=== PATIENT | male | born 2000 ===

== ENCOUNTER 2022-07-15 21:14 | Emergency (ER) | payer SELFPAY ==
[~2022-07-15] VITALS: Ht 167.6 cm; Wt 84.0 kg
[2022-07-15 21:55] LABS: AMPHET/METH SCREEN,URINE NEGATIVE (NEGATIVE); BARBITURATE SCREEN, URINE NEGATIVE (NEGATIVE); BENZODIAZEPINES SCREEN,URINE NEGATIVE (NEGATIVE); CANNABINOID SCREEN,URINE NEGATIVE (NEGATIVE); COCAINE SCREEN,URINE NEGATIVE (NEGATIVE); METHADONE SCREEN, URINE NEGATIVE (NEGATIVE); OPIATE SCREEN,URINE NEGATIVE (NEGATIVE)
[2022-07-15 21:59] LABS: PHENCYCLIDINE SCREEN,URINE NEGATIVE (NEGATIVE)
[2022-07-15 22:25] VITALS: BP 129/77
== END 2022-07-15 22:44 | disposition home or self-care (01) ==
LOC: EMS 21:17
DX: R07.89 Other chest pain (principal)
CPT/HCPCS: 71045; 80307; 93005; 99285